=== PATIENT | female | born 2000 | race Caucasian/White ===

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

== ENCOUNTER 2021-05-12 07:43 | Inpatient (IN) ==
[2021-05-12] MEDS ORDERED: DINOPROSTONE 10 MG INSERT PV ONE ×2 (08:32→22:27)
[2021-05-12] MEDS ORDERED: OXYTOCIN 30 UNITS/500 ML BAG IV PRN (08:32)
--- NOTE | 2021-05-12 08:44 | Obstetrical Progress Note ---
Date of Service May 12, 2021 Assessment & Plan (1) Post-dates : Plan: Induction for post dates bedside sono; Vt presentation EFW by brendon; 9lbs VE; ft/50/-3 soft FHR CAT1 CTx; 6-8mins Cervidil will be placed Admission and Anticipated Discharge Date Admission Date: May 12, 2021 Results & Data ([facility]) Vital Signs (Past 12 Hours) Vital Signs Temp Pulse Resp BP 05/12/21 08:07 37.2 C 18 05/12/21 08:06 100 H 133/77
[2021-05-12 09:04] LABS: Hematocrit (blood only) 35.9 % (37-47); Hemoglobin 12.1 g/dL (12.0-16.0); Mean Corpuscular Hemoglobin 31.6 pg (25-34); Mean Corpuscular Hgb Conc 33.7 g/dL (32-36); Mean Corpuscular Volume 93.7 fL (80-100); Mean Platelet Volume 9.1 fL (7.4-10.4); Platelet Count 367 K/uL (130-400); RDW Coefficient of Variation 14.1 % (11.5-14.5); RDW Standard Deviation 48.4 fL (36.4-46.3); Red Blood Count 3.83 M/uL (4.2-5.4); White Blood Count 13.43 K/uL (4.8-10.8)
[2021-05-12] MEDS ORDERED: CALCIUM CARBONATE 500 MG CHEWABLE TAB PO PRN (09:20)
[2021-05-12] MEDS ORDERED: SODIUM CHLORIDE 0.9% 250 ML IV PRN (09:34)
[2021-05-12] MEDS ORDERED: ACETAMINOPHEN 325 MG TAB PO PRN (13:33)
[2021-05-12] MEDS: BUTORPHANOL TARTRATE 1 MG/ML VIAL IV PRN ×3 (13:46→22:40)
[2021-05-12] MEDS: ONDANSETRON INJ 2 MG/ML 2 ML VIAL IV PRN (13:47)
[2021-05-12] MEDS: LACTATED RINGER'S 1,000 ML IV PRN (13:49)
--- NOTE | 2021-05-12 22:26 | Labor Progress Brief Note ---
Date of Service May 12, 2021 Assessment & Plan (1) Post-dates : Plan: Induction for post dates Day#1 FHR CAT1 Ctx 2-3min VE; ft/post Cervidil Removed Plan Feed pt Will place 2nd Cervidil after dinner Admission and Anticipated Discharge Date Admission Date: May 12, 2021 Results & Data ([facility]) Vital Signs (Past 12 Hours) Vital Signs Temp Pulse Resp BP Pulse Ox 05/12/21 19:55 102 H 94 05/12/21 19:51 101 H 93 05/12/21 19:47 102 H 94 05/12/21 19:46 107 H 97 05/12/21 19:41 107 H 92 05/12/21 19:36 99 H 93 05/12/21 19:35 105 H 94 05/12/21 19:30 104 H 95 05/12/21 19:25 111 H 90 05/12/21 19:20 104 H 91 05/12/21 19:15 110 H 94 05/12/21 19:10 111 H 97 05/12/21 19:08 106 H 131/75 05/12/21 15:30 18 05/12/21 15:07 36.7 C 18 05/12/21 15:06 93 H 125/73 05/12/21 11:06 36.8 C 96 H 20 122/70
--- NOTE | 2021-05-13 00:17 | Labor Progress Brief Note ---
Date of Service May 13, 2021 Assessment & Plan (1) Post-dates : Plan: Induction for post dates FHR; CAT1 Ctx ; 2-6 mins VE; Unchanged Cervidil #2 placed in Vagina Admission and Anticipated Discharge Date Admission Date: May 12, 2021 Results & Data ([facility]) Vital Signs (Past 12 Hours) Vital Signs Temp Pulse Resp BP Pulse Ox 05/12/21 22:59 117 H 93 05/12/21 22:54 109 H 88 L 05/12/21 22:49 120 H 91 05/12/21 22:44 122 H 94 05/12/21 22:39 113 H 115/75 94 05/12/21 19:55 102 H 94 05/12/21 19:51 101 H 93 05/12/21 19:47 102 H 94 05/12/21 19:46 107 H 97 05/12/21 19:41 107 H 92 05/12/21 19:36 99 H 93 05/12/21 19:35 105 H 94 05/12/21 19:30 104 H 95 05/12/21 19:25 111 H 90 05/12/21 19:20 104 H 91 05/12/21 19:15 110 H 94 05/12/21 19:10 111 H 97 05/12/21 19:08 106 H 131/75 05/12/21 15:30 18 05/12/21 15:07 36.7 C 18 05/12/21 15:06 93 H 125/73
[2021-05-13] MEDS ORDERED: ZOLPIDEM TARTRATE 5 MG TAB PO PRN (00:56)
[2021-05-13] MEDS: BUTORPHANOL TARTRATE 1 MG/ML VIAL IV PRN (02:00)
[2021-05-13] MEDS ORDERED: ePHEDrine sulfate 50 MG/ML AMP ONE (03:09)
[2021-05-13] MEDS ORDERED: fentaNYL citrate 100 MCG/2 ML VIAL ONE ×2 (03:09→15:40)
[2021-05-13] MEDS ORDERED: BUPIVACAINE 0.25% 30 ML VIAL ONE ×2 (03:09→15:40)
[2021-05-13] MEDS ORDERED: SODIUM CHLORIDE 0.9% INJ 10 ML VIAL ONE ×2 (03:09→15:40)
[2021-05-13] MEDS ORDERED: fentaNYL 2MCG/ML ROPIVACAINE 1.25MG/ML 100 ML BAG EPI ONE ×2 (03:09→12:05)
[2021-05-13] MEDS ORDERED: ONDANSETRON INJ 2 MG/ML 2 ML VIAL IV PRN (03:13)
[2021-05-13] MEDS ORDERED: NALOXONE HCL 1 MG in SODIUM CHLORIDE 0.9% 1000ML 1,000 ML IV PRN (03:13)
[2021-05-13] MEDS ORDERED: NALBUPHINE HCL INJ 10 MG/ML AMP IV PRN (03:13)
[2021-05-13] MEDS ORDERED: diphenhydrAMINE 50 MG/ML VIAL IV PRN (03:13)
[2021-05-13] MEDS ORDERED: ePHEDrine sulfate 50 MG/ML AMP IV PRN (03:13)
[2021-05-13] MEDS ORDERED: NALOXONE HCL 0.4 MG/1 ML VIAL/CARP IV PRN (03:13)
--- NOTE | 2021-05-13 03:13 | Anesthesiology Consultation ---
Date of Service May 13, 2021 Assessment & Plan ASA ASA2 Proposed Anesthesia Anesthesia Type: Labor Epidural Risk / Benefits Reviewed With: PT / POA / Parent / Guardian, Accepts Plan and Informed Consent Obtained History Height/Weight Height: 5 ft Weight: 81.647 kg Allergies Allergy/AdvReac Type Severity Reaction Status Date / Time No Known Allergies Allergy Unknown Verified 05/12/21 08:12 Medications Home Medications Medication Instructions Recorded Confirmed Last Taken acetaminophen 325 mg capsule 650 mg PO QID PRN 02/02/21 05/12/21 05/12/21 07:00 iron,carbonyl 65 mg-vitamin C 125 1 tab PO BID 03/06/21 05/12/21 05/11/21 21:00 mg tablet,delayed release (Vitron-C) cyanocobalamin (vitamin B-12) 1,000 mcg PO DAILY 05/12/21 05/12/21 05/11/21 09:00 1,000 mcg tablet (Vitamin B-12) Active Medications Generic Name Dose Route Start Last Admin Trade Name Freq PRN Reason Stop Dose Admin Butorphanol Tartrate 1 mg 05/12/21 13:34 05/13/21 02:00 Butorphanol Tartrate 1 Mg/Ml Vial IV 06/11/21 13:33 1 mg Q2HWA PRN Administration Pain Calcium Carbonate 1,500 mg 05/12/21 09:20 05/12/21 09:44 Calcium Carbonate 500 Mg Chewable Tab PO 06/11/21 09:19 1,500 mg Q4 PRN Administration Indigestion Lactated Ringer's 1,000 mls @ 125 mls/hr 05/12/21 08:32 05/13/21 03:01 Lr IV 05/14/21 08:31 Infused .Q8H PRN Infusion L&D Protocol Protocol Ondansetron HCl 4 mg 05/12/21 13:32 05/12/21 13:47 Ondansetron Inj 2 Mg/Ml 2 Ml Vial IV 06/11/21 13:31 4 mg Q4H PRN Administration Nausea Zolpidem Tartrate 5 mg 05/13/21 00:56 05/13/21 01:18 Zolpidem Tartrate 5 Mg Tab PO 06/12/21 00:55 5 mg HS PRN Administration Sleep Past Medical History Medical History (Updated 05/12/21 @ 08:41 by Jeremy Peres MD) Anemia on Vitron C Asthma no meds at this time. Low serum vitamin B12 Exercise / Class Metabolic Activity II 4-5 Yardwork/Stairs/Walk up hill Past Surgical History Surgical History No significant past surgical history Past Anesthesia History No Hx of Anesthesia Complications and No Family Hx of Anesthesia Complications History of PONV No Hx of PONV and No Hx of Motion Sickness Social History Smoking Status: Never smoker Hx Alcohol Use: No Hx Substance Use: No substance use type: does not use Review of Systems denies fever/cough/ colds/ chest pain/ SOB/ TRICE denies TRICE Physical Exam Vital Signs Last Vital Signs Temp 36.9 C 05/13/21 01:45 Pulse 127 H 05/13/21 03:44 Resp 18 05/12/21 15:30 BP 124/68 05/13/21 03:44 Pulse Ox 98 05/13/21 03:41 ENMT Mouth: no TMJ abnormality and no dentition abnormality Thyromental Distance: > or= 3.5 Finger Breadths Mallampati Class: II Neck neck extension not limited Respiratory normal respiratory effort; no respiratory distress Auscultation: lungs clear to auscultation bilaterally Cardiovascular Rate/Rhythm: regular rate and regular rhythm Neurologic moves all extremities Psychiatric Orientation: alert and oriented x 3 Testing Laboratory Results 05/12/21 08:55 Blood Type B Positive 05/12/21 08:55 Antibody Screen NEGATIVE 05/12/21 08:55
[2021-05-13] MEDS: fentaNYL 2MCG/ML ROPIVACAINE 1.25MG/ML 100 ML BAG EPI PRN ×4 (04:39→16:42)
[2021-05-13] MEDS ORDERED: LIDOCAINE 2% MPF LOCAL 5 ML VIAL INFIL ONE ×2 (05:13)
[2021-05-13] MEDS: LACTATED RINGER'S 1,000 ML IV PRN ×3 (05:18→12:11)
--- NOTE | 2021-05-13 05:31 | Communication Note ---
Date of Service: May 13, 2021 pt c/o 03/26 pain. bolused 5cc of 2% licocaine and pulled epidural back 1 cm. pt reports improvement in pain
--- NOTE | 2021-05-13 05:54 | Labor Progress Brief Note ---
Date of Service May 13, 2021 Assessment & Plan (1) Post-dates : Plan: Induction for post dates Pt doing well SROM @ 03;[address] 2nd cervidil removed after SROM FHR ; CAT2 VE 6-7/75/-1 ctx 2-3 mins scalp electrode placed Admission and Anticipated Discharge Date Admission Date: May 12, 2021 Results & Data ([facility]) Vital Signs (Past 12 Hours) Vital Signs Temp Pulse Resp BP Pulse Ox 05/13/21 05:47 110 H 111/61 05/13/21 05:46 109 H 91 05/13/21 05:41 110 H 91 05/13/21 05:36 111 H 92 05/13/21 05:32 113 H 112/58 L 05/13/21 05:31 113 H 91 05/13/21 05:30 20 05/13/21 05:26 119 H 89 L 05/13/21 05:21 127 H 124/59 L 93 05/13/21 05:20 37.2 C 05/13/21 05:17 133 H 123/68 05/13/21 05:16 128 H 90 05/13/21 05:15 134 H 94 05/13/21 05:11 137 H 97 05/13/21 05:10 134 H 93 05/13/21 05:06 131 H 93 05/13/21 05:02 148 H 154/88 H 05/13/21 05:01 149 H 95 05/13/21 04:56 132 H 96 05/13/21 04:55 135 H 93 05/13/21 04:51 134 H 97 05/13/21 04:48 140 H 145/78 H 94 05/13/21 04:46 149 H 91 05/13/21 04:41 131 H 91 05/13/21 04:36 131 H 94 05/13/21 04:35 141 H 94 05/13/21 04:31 37.1 C 136 H 94 05/13/21 04:30 136 H 24 145/79 H 92 05/13/21 04:26 133 H 93 05/13/21 04:25 134 H 133/81 05/13/21 04:21 135 H 93 05/13/21 04:20 131 H 137/62 05/13/21 04:16 134 H 97 05/13/21 04:14 134 H 137/76 05/13/21 04:11 141 H 96 05/13/21 04:10 130 H 140/65 05/13/21 04:09 130 H 93 05/13/21 04:06 129 H 97 05/13/21 04:05 125 H 136/58 L 05/13/21 04:04 130 H 94 05/13/21 04:01 132 H 136/72 94 05/13/21 04:00 22 05/13/21 03:58 131 H 93 05/13/21 03:56 132 H 96 05/13/21 03:54 129 H 138/77 05/13/21 03:52 126 H 94 05/13/21 03:51 127 H 95 05/13/21 03:50 129 H 133/67 05/13/21 03:46 128 H 93 05/13/21 03:44 127 H 124/68 05/13/21 03:41 137 H 98 05/13/21 03:38 136 H 122/62 93 05/13/21 03:36 142 H 120/65 97 05/13/21 03:34 134 H 120/62 05/13/21 03:32 137 H 121/68 05/13/21 03:31 135 H 97 05/13/21 03:30 137 H 111/64 05/13/21 01:45 36.9 C 05/12/21 22:59 117 H 93 05/12/21 22:54 109 H 88 L 05/12/21 22:49 120 H 91 05/12/21 22:44 122 H 94 05/12/21 22:39 113 H 115/75 94 05/12/21 19:55 102 H 94 05/12/21 19:51 101 H 93 05/12/21 19:47 102 H 94 05/12/21 19:46 107 H 97 05/12/21 19:41 107 H 92 05/12/21 19:36 99 H 93 05/12/21 19:35 105 H 94 05/12/21 19:30 104 H 95 05/12/21 19:25 111 H 90 05/12/21 19:20 104 H 91 05/12/21 19:15 110 H 94 05/12/21 19:10 111 H 97 05/12/21 19:08 106 H 131/75
[2021-05-13] MEDS ORDERED: OXYTOCIN 30 UNITS/500 ML BAG IV PRN ×2 (08:39→18:51)
--- NOTE | 2021-05-13 08:39 | Obstetrical Progress Note ---
Date of Service May 13, 2021 Assessment & Plan Admission and Anticipated Discharge Date Admission Date: May 12, 2021 Subjective Patient is seen and examined Admitted yesterday for postdates, received 2 Cervidil SROM at 03 am Cervix was 6-7 cm at [address] Peres She denies medical problems, smoking/ alcohol or D use Denies h/o STD's including HSV FHR with baseline of 150-160's, with accelerations, no decels, between minimal to moderate variability [place] irregular ctxs q 2-5 min VE; 6-7 cm/ 70%/ 0, anterior fontanelle at 10 'clock position, FHR had acceleration with VE Feels feverish and chills, feels warm to touch despite normal oral temp Plan to start IV AB and low dose pitocin Continue to monitor closely Results & Data ([facility]) Vital Signs (Past 12 Hours) Vital Signs Temp Pulse Resp BP Pulse Ox 05/13/21 08:32 127 H 119/58 L 05/13/21 08:31 129 H 95 05/13/21 08:26 123 H 95 05/13/21 08:21 127 H 95 05/13/21 08:16 131 H 116/65 93 05/13/21 08:15 37.3 C 05/13/21 08:11 124 H 93 05/13/21 08:06 123 H 89 L 05/13/21 08:03 121 H 88 L 05/13/21 08:01 125 H 107/59 L 91 05/13/21 07:56 134 H 91 05/13/21 07:51 121 H 91 05/13/21 07:47 114 H 89 L 05/13/21 07:46 116 H 105/58 L 90 05/13/21 07:41 114 H 88 L 05/13/21 07:38 115 H 88 L 05/13/21 07:36 111 H 88 L 05/13/21 07:31 112 H 98/57 L 89 L 05/13/21 07:26 115 H 88 L 05/13/21 07:21 124 H 90 05/13/21 07:16 127 H 114/71 90 05/13/21 07:11 123 H 91 05/13/21 07:06 127 H 88 L 05/13/21 07:01 139 H 106/56 L 91 05/13/21 07:00 37.3 C 132 H 18 87 L 05/13/21 06:56 136 H 92 05/13/21 06:55 135 H 94 05/13/21 06:51 131 H 92 05/13/21 06:46 126 H 108/56 L 91 05/13/21 06:41 120 H 88 L 05/13/21 06:36 125 H 91 05/13/21 06:33 137 H 101/58 L 05/13/21 06:31 137 H 95 05/13/21 06:30 127 H 16 93 05/13/21 06:28 126 H 118/53 L 05/13/21 06:26 131 H 93 05/13/21 06:25 132 H 94 05/13/21 06:21 133 H 93 05/13/21 06:19 126 H 94 05/13/21 06:16 128 H 93 05/13/21 06:11 109 H 90 05/13/21 06:06 108 H 90 05/13/21 06:01 110 H 102/54 L 91 05/13/21 05:56 112 H 92 05/13/21 05:53 129 H 94 05/13/21 05:51 126 H 97 05/13/21 05:47 110 H 111/61 05/13/21 05:46 109 H 91 05/13/21 05:41 110 H 91 05/13/21 05:36 111 H 92 05/13/21 05:32 113 H 112/58 L 05/13/21 05:31 113 H 91 05/13/21 05:30 20 05/13/21 05:26 119 H 89 L 05/13/21 05:21 127 H 124/59 L 93 05/13/21 05:20 37.2 C 05/13/21 05:17 133 H 123/68 05/13/21 05:16 128 H 90 05/13/21 05:15 134 H 94 05/13/21 05:11 137 H 97 05/13/21 05:10 134 H 93 05/13/21 05:06 131 H 93 05/13/21 05:02 148 H 154/88 H 05/13/21 05:01 149 H 95 05/13/21 04:56 132 H 96 05/13/21 04:55 135 H 93 05/13/21 04:51 134 H 97 05/13/21 04:48 140 H 145/78 H 94 05/13/21 04:46 149 H 91 05/13/21 04:41 131 H 91 05/13/21 04:36 131 H 94 05/13/21 04:35 141 H 94 05/13/21 04:31 37.1 C 136 H 94 05/13/21 04:30 136 H 24 145/79 H 92 05/13/21 04:26 133 H 93 05/13/21 04:25 134 H 133/81 05/13/21 04:21 135 H 93 05/13/21 04:20 131 H 137/62 05/13/21 04:16 134 H 97 05/13/21 04:14 134 H 137/76 05/13/21 04:11 141 H 96 05/13/21 04:10 130 H 140/65 05/13/21 04:09 130 H 93 05/13/21 04:06 129 H 97 05/13/21 04:05 125 H 136/58 L 05/13/21 04:04 130 H 94 05/13/21 04:01 132 H 136/72 94 05/13/21 04:00 22 05/13/21 03:58 131 H 93 05/13/21 03:56 132 H 96 05/13/21 03:54 129 H 138/77 05/13/21 03:52 126 H 94 05/13/21 03:51 127 H 95 05/13/21 03:50 129 H 133/67 05/13/21 03:46 128 H 93 05/13/21 03:44 127 H 124/68 05/13/21 03:41 137 H 98 05/13/21 03:38 136 H 122/62 93 05/13/21 03:36 142 H 120/65 97 05/13/21 03:34 134 H 120/62 05/13/21 03:32 137 H 121/68 05/13/21 03:31 135 H 97 05/13/21 03:30 137 H 111/64 05/13/21 01:45 36.9 C 05/12/21 22:59 117 H 93 05/12/21 22:54 109 H 88 L 05/12/21 22:49 120 H 91 05/12/21 22:44 122 H 94 05/12/21 22:39 113 H 115/75 94
[2021-05-13] MEDS: ceFAZolin 2000MG 2,000 MG/15 ML SYR IV SCH ×3 (09:25→19:25)
[2021-05-13] MEDS: CLINDAMYCIN 900 MG in DEXTROSE 5% 50 ML IV SCH ×3 (09:29→19:25)
--- NOTE | 2021-05-13 12:39 | Obstetrical Progress Note ---
Date of Service May 13, 2021 Assessment & Plan Admission and Anticipated Discharge Date Admission Date: May 12, 2021 Subjective Patient is reevaluated She feels pressure VE: 10/100%/+2 FHR 160's, minimal to moderate variability and accelerations+, no decel [place]: ctxs q 2-3 min Plan to monitor and start pushing Results & Data ([facility]) Vital Signs (Past 12 Hours) Vital Signs Temp Pulse Resp BP Pulse Ox 05/13/21 12:36 131 H 93 05/13/21 12:32 136 H 127/61 05/13/21 12:31 137 H 95 05/13/21 12:30 20 05/13/21 12:26 126 H 94 05/13/21 12:21 123 H 91 05/13/21 12:16 124 H 118/58 L 93 05/13/21 12:11 130 H 91 05/13/21 12:06 128 H 92 05/13/21 12:01 126 H 111/65 92 05/13/21 11:56 127 H 94 05/13/21 11:51 126 H 91 05/13/21 11:47 126 H 121/59 L 05/13/21 11:46 128 H 91 05/13/21 11:41 124 H 92 05/13/21 11:36 116 H 91 05/13/21 11:31 116 H 116/57 L 89 L 05/13/21 11:26 111 H 89 L 05/13/21 11:21 118 H 92 05/13/21 11:17 123 H 121/66 05/13/21 11:16 120 H 91 05/13/21 11:11 110 H 91 05/13/21 11:06 115 H 93 05/13/21 11:01 117 H 118/63 92 05/13/21 10:56 124 H 91 05/13/21 10:51 129 H 94 05/13/21 10:46 123 H 97/51 L 90 05/13/21 10:41 121 H 90 05/13/21 10:36 126 H 92 05/13/21 10:32 126 H 126/56 L 05/13/21 10:31 125 H 93 05/13/21 10:30 18 05/13/21 10:26 125 H 94 05/13/21 10:21 127 H 94 05/13/21 10:17 125 H 104/52 L 05/13/21 10:16 126 H 95 05/13/21 10:11 128 H 95 05/13/21 10:06 130 H 94 05/13/21 10:01 127 H 93 05/13/21 09:56 134 H 93 05/13/21 09:51 127 H 94 05/13/21 09:46 127 H 95/50 L 92 05/13/21 09:41 133 H 93 05/13/21 09:36 118 H 89 L 05/13/21 09:31 114 H 90/52 L 89 L 05/13/21 09:30 18 05/13/21 09:26 114 H 89 L 05/13/21 09:21 114 H 89 L 05/13/21 09:17 110 H 94/51 L 05/13/21 09:16 114 H 89 L 05/13/21 09:13 118 H 89 L 05/13/21 09:11 114 H 89 L 05/13/21 09:06 117 H 89 L 05/13/21 09:02 121 H 89 L 05/13/21 09:01 120 H 104/52 L 91 05/13/21 09:00 20 05/13/21 08:56 123 H 93 05/13/21 08:51 119 H 93 05/13/21 08:48 118 H 99/55 L 05/13/21 08:46 125 H 94 05/13/21 08:41 126 H 94 05/13/21 08:36 125 H 96 05/13/21 08:32 127 H 119/58 L 05/13/21 08:31 129 H 95 05/13/21 08:26 123 H 95 05/13/21 08:21 127 H 95 05/13/21 08:16 131 H 116/65 93 05/13/21 08:15 37.3 C 05/13/21 08:11 124 H 93 05/13/21 08:06 123 H 89 L 05/13/21 08:03 121 H 88 L 05/13/21 08:01 125 H 107/59 L 91 05/13/21 07:56 134 H 91 05/13/21 07:51 121 H 91 05/13/21 07:47 114 H 89 L 05/13/21 07:46 116 H 105/58 L 90 05/13/21 07:41 114 H 88 L 05/13/21 07:38 115 H 88 L 05/13/21 07:36 111 H 88 L 05/13/21 07:31 112 H 98/57 L 89 L 05/13/21 07:26 115 H 88 L 05/13/21 07:21 124 H 90 05/13/21 07:16 127 H 114/71 90 05/13/21 07:11 123 H 91 05/13/21 07:06 127 H 88 L 05/13/21 07:01 139 H 106/56 L 91 05/13/21 07:00 37.3 C 132 H 18 87 L 05/13/21 06:56 136 H 92 05/13/21 06:55 135 H 94 05/13/21 06:51 131 H 92 05/13/21 06:46 126 H 108/56 L 91 05/13/21 06:41 120 H 88 L 05/13/21 06:36 125 H 91 05/13/21 06:33 137 H 101/58 L 05/13/21 06:31 137 H 95 05/13/21 06:30 127 H 16 93 05/13/21 06:28 126 H 118/53 L 05/13/21 06:26 131 H 93 05/13/21 06:25 132 H 94 05/13/21 06:21 133 H 93 05/13/21 06:19 126 H 94 05/13/21 06:16 128 H 93 05/13/21 06:11 109 H 90 05/13/21 06:06 108 H 90 05/13/21 06:01 110 H 102/54 L 91 05/13/21 05:56 112 H 92 05/13/21 05:53 129 H 94 05/13/21 05:51 126 H 97 05/13/21 05:47 110 H 111/61 05/13/21 05:46 109 H 91 05/13/21 05:41 110 H 91 05/13/21 05:36 111 H 92 05/13/21 05:32 113 H 112/58 L 05/13/21 05:31 113 H 91 05/13/21 05:30 20 05/13/21 05:26 119 H 89 L 05/13/21 05:21 127 H 124/59 L 93 05/13/21 05:20 37.2 C 05/13/21 05:17 133 H 123/68 05/13/21 05:16 128 H 90 05/13/21 05:15 134 H 94 05/13/21 05:11 137 H 97 05/13/21 05:10 134 H 93 05/13/21 05:06 131 H 93 05/13/21 05:02 148 H 154/88 H 05/13/21 05:01 149 H 95 05/13/21 04:56 132 H 96 05/13/21 04:55 135 H 93 05/13/21 04:51 134 H 97 05/13/21 04:48 140 H 145/78 H 94 05/13/21 04:46 149 H 91 05/13/21 04:41 131 H 91 05/13/21 04:36 131 H 94 05/13/21 04:35 141 H 94 05/13/21 04:31 37.1 C 136 H 94 05/13/21 04:30 136 H 24 145/79 H 92 05/13/21 04:26 133 H 93 05/13/21 04:25 134 H 133/81 05/13/21 04:21 135 H 93 05/13/21 04:20 131 H 137/62 05/13/21 04:16 134 H 97 05/13/21 04:14 134 H 137/76 05/13/21 04:11 141 H 96 05/13/21 04:10 130 H 140/65 05/13/21 04:09 130 H 93 05/13/21 04:06 129 H 97 05/13/21 04:05 125 H 136/58 L 05/13/21 04:04 130 H 94 05/13/21 04:01 132 H 136/72 94 05/13/21 04:00 22 05/13/21 03:58 131 H 93 05/13/21 03:56 132 H 96 05/13/21 03:54 129 H 138/77 05/13/21 03:52 126 H 94 05/13/21 03:51 127 H 95 05/13/21 03:50 129 H 133/67 05/13/21 03:46 128 H 93 05/13/21 03:44 127 H 124/68 05/13/21 03:41 137 H 98 05/13/21 03:38 136 H 122/62 93 05/13/21 03:36 142 H 120/65 97 05/13/21 03:34 134 H 120/62 05/13/21 03:32 137 H 121/68 05/13/21 03:31 135 H 97 05/13/21 03:30 137 H 111/64 05/13/21 01:45 36.9 C
--- NOTE | 2021-05-13 14:00 | Obstetrical Progress Note ---
Date of Service May 13, 2021 Assessment & Plan Admission and Anticipated Discharge Date Admission Date: May 12, 2021 Subjective Patient has been pushing since 1:30 pm FHR 150-160's with good variability and accels, no decels VE: head at +3 station, caput visible at introitus Continue to monitor and pushing Results & Data ([facility]) Vital Signs (Past 12 Hours) Vital Signs Temp Pulse Resp BP Pulse Ox 05/13/21 13:56 122 H 99 05/13/21 13:51 115 H 94 05/13/21 13:46 121 H 120/58 L 94 05/13/21 13:41 122 H 95 05/13/21 13:36 130 H 94 05/13/21 13:31 131 H 96 05/13/21 13:30 37.7 C H 18 05/13/21 13:26 129 H 94 05/13/21 13:21 132 H 94 05/13/21 13:16 129 H 139/77 94 05/13/21 13:11 124 H 93 05/13/21 13:06 131 H 93 05/13/21 13:02 130 H 131/62 05/13/21 13:01 128 H 93 05/13/21 12:56 129 H 94 05/13/21 12:51 126 H 94 05/13/21 12:46 132 H 136/69 94 05/13/21 12:41 122 H 93 05/13/21 12:36 131 H 93 05/13/21 12:32 136 H 127/61 05/13/21 12:31 137 H 95 05/13/21 12:30 20 05/13/21 12:26 126 H 94 05/13/21 12:21 123 H 91 05/13/21 12:16 124 H 118/58 L 93 05/13/21 12:11 130 H 91 05/13/21 12:06 128 H 92 05/13/21 12:01 126 H 111/65 92 05/13/21 11:56 127 H 94 05/13/21 11:51 126 H 91 05/13/21 11:47 126 H 121/59 L 05/13/21 11:46 128 H 91 05/13/21 11:41 124 H 92 05/13/21 11:36 116 H 91 05/13/21 11:31 116 H 116/57 L 89 L 05/13/21 11:26 111 H 89 L 05/13/21 11:21 118 H 92 05/13/21 11:17 123 H 121/66 05/13/21 11:16 120 H 91 05/13/21 11:11 110 H 91 05/13/21 11:06 115 H 93 05/13/21 11:01 117 H 118/63 92 05/13/21 10:56 124 H 91 05/13/21 10:51 129 H 94 05/13/21 10:46 123 H 97/51 L 90 05/13/21 10:41 121 H 90 05/13/21 10:36 126 H 92 05/13/21 10:32 126 H 126/56 L 05/13/21 10:31 125 H 93 05/13/21 10:30 18 05/13/21 10:26 125 H 94 05/13/21 10:21 127 H 94 05/13/21 10:17 125 H 104/52 L 05/13/21 10:16 126 H 95 05/13/21 10:11 128 H 95 05/13/21 10:06 130 H 94 05/13/21 10:01 127 H 93 05/13/21 09:56 134 H 93 05/13/21 09:51 127 H 94 05/13/21 09:46 127 H 95/50 L 92 05/13/21 09:41 133 H 93 05/13/21 09:36 118 H 89 L 05/13/21 09:31 114 H 90/52 L 89 L 05/13/21 09:30 18 05/13/21 09:26 114 H 89 L 05/13/21 09:21 114 H 89 L 05/13/21 09:17 110 H 94/51 L 05/13/21 09:16 114 H 89 L 05/13/21 09:13 118 H 89 L 05/13/21 09:11 114 H 89 L 05/13/21 09:06 117 H 89 L 05/13/21 09:02 121 H 89 L 05/13/21 09:01 120 H 104/52 L 91 05/13/21 09:00 20 05/13/21 08:56 123 H 93 05/13/21 08:51 119 H 93 05/13/21 08:48 118 H 99/55 L 05/13/21 08:46 125 H 94 05/13/21 08:41 126 H 94 05/13/21 08:36 125 H 96 05/13/21 08:32 127 H 119/58 L 05/13/21 08:31 129 H 95 05/13/21 08:26 123 H 95 05/13/21 08:21 127 H 95 05/13/21 08:16 131 H 116/65 93 05/13/21 08:15 37.3 C 05/13/21 08:11 124 H 93 05/13/21 08:06 123 H 89 L 05/13/21 08:03 121 H 88 L 05/13/21 08:01 125 H 107/59 L 91 05/13/21 07:56 134 H 91 05/13/21 07:51 121 H 91 05/13/21 07:47 114 H 89 L 05/13/21 07:46 116 H 105/58 L 90 05/13/21 07:41 114 H 88 L 05/13/21 07:38 115 H 88 L 05/13/21 07:36 111 H 88 L 05/13/21 07:31 112 H 98/57 L 89 L 05/13/21 07:26 115 H 88 L 05/13/21 07:21 124 H 90 05/13/21 07:16 127 H 114/71 90 05/13/21 07:11 123 H 91 05/13/21 07:06 127 H 88 L 05/13/21 07:01 139 H 106/56 L 91 05/13/21 07:00 37.3 C 132 H 18 87 L 05/13/21 06:56 136 H 92 05/13/21 06:55 135 H 94 05/13/21 06:51 131 H 92 05/13/21 06:46 126 H 108/56 L 91 05/13/21 06:41 120 H 88 L 05/13/21 06:36 125 H 91 05/13/21 06:33 137 H 101/58 L 05/13/21 06:31 137 H 95 05/13/21 06:30 127 H 16 93 05/13/21 06:28 126 H 118/53 L 05/13/21 06:26 131 H 93 05/13/21 06:25 132 H 94 05/13/21 06:21 133 H 93 05/13/21 06:19 126 H 94 05/13/21 06:16 128 H 93 05/13/21 06:11 109 H 90 05/13/21 06:06 108 H 90 05/13/21 06:01 110 H 102/54 L 91 05/13/21 05:56 112 H 92 05/13/21 05:53 129 H 94 05/13/21 05:51 126 H 97 05/13/21 05:47 110 H 111/61 05/13/21 05:46 109 H 91 05/13/21 05:41 110 H 91 05/13/21 05:36 111 H 92 05/13/21 05:32 113 H 112/58 L 05/13/21 05:31 113 H 91 05/13/21 05:30 20 05/13/21 05:26 119 H 89 L 05/13/21 05:21 127 H 124/59 L 93 05/13/21 05:20 37.2 C 05/13/21 05:17 133 H 123/68 05/13/21 05:16 128 H 90 05/13/21 05:15 134 H 94 05/13/21 05:11 137 H 97 05/13/21 05:10 134 H 93 05/13/21 05:06 131 H 93 05/13/21 05:02 148 H 154/88 H 05/13/21 05:01 149 H 95 05/13/21 04:56 132 H 96 05/13/21 04:55 135 H 93 05/13/21 04:51 134 H 97 05/13/21 04:48 140 H 145/78 H 94 05/13/21 04:46 149 H 91 05/13/21 04:41 131 H 91 05/13/21 04:36 131 H 94 05/13/21 04:35 141 H 94 05/13/21 04:31 37.1 C 136 H 94 05/13/21 04:30 136 H 24 145/79 H 92 05/13/21 04:26 133 H 93 05/13/21 04:25 134 H 133/81 05/13/21 04:21 135 H 93 05/13/21 04:20 131 H 137/62 05/13/21 04:16 134 H 97 05/13/21 04:14 134 H 137/76 05/13/21 04:11 141 H 96 05/13/21 04:10 130 H 140/65 05/13/21 04:09 130 H 93 05/13/21 04:06 129 H 97 05/13/21 04:05 125 H 136/58 L 05/13/21 04:04 130 H 94 05/13/21 04:01 132 H 136/72 94 05/13/21 04:00 22 05/13/21 03:58 131 H 93 05/13/21 03:56 132 H 96 05/13/21 03:54 129 H 138/77 05/13/21 03:52 126 H 94 05/13/21 03:51 127 H 95 05/13/21 03:50 129 H 133/67 05/13/21 03:46 128 H 93 05/13/21 03:44 127 H 124/68 05/13/21 03:41 137 H 98 05/13/21 03:38 136 H 122/62 93 05/13/21 03:36 142 H 120/65 97 05/13/21 03:34 134 H 120/62 05/13/21 03:32 137 H 121/68 05/13/21 03:31 135 H 97 05/13/21 03:30 137 H 111/64
[2021-05-13] MEDS: ONDANSETRON INJ 2 MG/ML 2 ML VIAL IV PRN (15:04)
--- NOTE | 2021-05-13 15:25 | Obstetrical Progress Note ---
Date of Service May 13, 2021 Assessment & Plan Admission and Anticipated Discharge Date Admission Date: May 12, 2021 Subjective Patient is tired and in pain, refuses to push, desires Csection FHR reassuring, head at +3, more caput visible with pushes Discussed the risks of Csection as major surgery and increased risk of bleeding, infection, injury to surrounding organs, DVT, PE and longer recovery Discussed risks of vacuum extraction Offered her pain relief by epidural bolus and she accepted Called Dr Freeman for pain management and he will be coming Continue to monitor closely Results & Data ([facility]) Vital Signs (Past 12 Hours) Vital Signs Temp Pulse Resp BP Pulse Ox 05/13/21 15:16 131 H 95 05/13/21 15:11 143 H 95 05/13/21 15:06 123 H 96 05/13/21 15:01 127 H 134/73 95 05/13/21 14:56 132 H 98 05/13/21 14:51 123 H 98 05/13/21 14:46 121 H 99 05/13/21 14:41 121 H 98 05/13/21 14:36 118 H 98 05/13/21 14:32 116 H 113/57 L 05/13/21 14:31 124 H 99 05/13/21 14:30 22 05/13/21 14:26 114 H 98 05/13/21 14:21 120 H 98 05/13/21 14:16 119 H 113/56 L 98 05/13/21 14:15 22 05/13/21 14:11 115 H 98 05/13/21 14:06 122 H 97 05/13/21 14:01 115 H 100/54 L 98 05/13/21 13:56 122 H 99 05/13/21 13:51 115 H 94 05/13/21 13:46 121 H 120/58 L 94 05/13/21 13:41 122 H 95 05/13/21 13:36 130 H 94 05/13/21 13:31 131 H 96 05/13/21 13:30 37.7 C H 18 05/13/21 13:26 129 H 94 05/13/21 13:21 132 H 94 05/13/21 13:16 129 H 139/77 94 05/13/21 13:11 124 H 93 05/13/21 13:06 131 H 93 05/13/21 13:02 130 H 131/62 05/13/21 13:01 128 H 93 05/13/21 12:56 129 H 94 05/13/21 12:51 126 H 94 05/13/21 12:46 132 H 136/69 94 05/13/21 12:41 122 H 93 05/13/21 12:36 131 H 93 05/13/21 12:32 136 H 127/61 05/13/21 12:31 137 H 95 05/13/21 12:30 20 05/13/21 12:26 126 H 94 05/13/21 12:21 123 H 91 05/13/21 12:16 124 H 118/58 L 93 05/13/21 12:11 130 H 91 05/13/21 12:06 128 H 92 05/13/21 12:01 126 H 111/65 92 05/13/21 11:56 127 H 94 05/13/21 11:51 126 H 91 05/13/21 11:47 126 H 121/59 L 05/13/21 11:46 128 H 91 05/13/21 11:41 124 H 92 05/13/21 11:36 116 H 91 05/13/21 11:31 116 H 116/57 L 89 L 05/13/21 11:26 111 H 89 L 05/13/21 11:21 118 H 92 05/13/21 11:17 123 H 121/66 05/13/21 11:16 120 H 91 05/13/21 11:11 110 H 91 05/13/21 11:06 115 H 93 05/13/21 11:01 117 H 118/63 92 05/13/21 10:56 124 H 91 05/13/21 10:51 129 H 94 05/13/21 10:46 123 H 97/51 L 90 05/13/21 10:41 121 H 90 05/13/21 10:36 126 H 92 05/13/21 10:32 126 H 126/56 L 05/13/21 10:31 125 H 93 05/13/21 10:30 18 05/13/21 10:26 125 H 94 05/13/21 10:21 127 H 94 05/13/21 10:17 125 H 104/52 L 05/13/21 10:16 126 H 95 05/13/21 10:11 128 H 95 05/13/21 10:06 130 H 94 05/13/21 10:01 127 H 93 05/13/21 09:56 134 H 93 05/13/21 09:51 127 H 94 05/13/21 09:46 127 H 95/50 L 92 05/13/21 09:41 133 H 93 05/13/21 09:36 118 H 89 L 05/13/21 09:31 114 H 90/52 L 89 L 05/13/21 09:30 18 05/13/21 09:26 114 H 89 L 05/13/21 09:21 114 H 89 L 05/13/21 09:17 110 H 94/51 L 05/13/21 09:16 114 H 89 L 05/13/21 09:13 118 H 89 L 05/13/21 09:11 114 H 89 L 05/13/21 09:06 117 H 89 L 05/13/21 09:02 121 H 89 L 05/13/21 09:01 120 H 104/52 L 91 05/13/21 09:00 20 05/13/21 08:56 123 H 93 05/13/21 08:51 119 H 93 05/13/21 08:48 118 H 99/55 L 05/13/21 08:46 125 H 94 05/13/21 08:41 126 H 94 05/13/21 08:36 125 H 96 05/13/21 08:32 127 H 119/58 L 05/13/21 08:31 129 H 95 05/13/21 08:26 123 H 95 05/13/21 08:21 127 H 95 05/13/21 08:16 131 H 116/65 93 05/13/21 08:15 37.3 C 05/13/21 08:11 124 H 93 05/13/21 08:06 123 H 89 L 05/13/21 08:03 121 H 88 L 05/13/21 08:01 125 H 107/59 L 91 05/13/21 07:56 134 H 91 05/13/21 07:51 121 H 91 05/13/21 07:47 114 H 89 L 05/13/21 07:46 116 H 105/58 L 90 05/13/21 07:41 114 H 88 L 05/13/21 07:38 115 H 88 L 05/13/21 07:36 111 H 88 L 05/13/21 07:31 112 H 98/57 L 89 L 05/13/21 07:26 115 H 88 L 05/13/21 07:21 124 H 90 05/13/21 07:16 127 H 114/71 90 05/13/21 07:11 123 H 91 05/13/21 07:06 127 H 88 L 05/13/21 07:01 139 H 106/56 L 91 05/13/21 07:00 37.3 C 132 H 18 87 L 05/13/21 06:56 136 H 92 05/13/21 06:55 135 H 94 05/13/21 06:51 131 H 92 05/13/21 06:46 126 H 108/56 L 91 05/13/21 06:41 120 H 88 L 05/13/21 06:36 125 H 91 05/13/21 06:33 137 H 101/58 L 05/13/21 06:31 137 H 95 05/13/21 06:30 127 H 16 93 05/13/21 06:28 126 H 118/53 L 05/13/21 06:26 131 H 93 05/13/21 06:25 132 H 94 05/13/21 06:21 133 H 93 05/13/21 06:19 126 H 94 05/13/21 06:16 128 H 93 05/13/21 06:11 109 H 90 05/13/21 06:06 108 H 90 05/13/21 06:01 110 H 102/54 L 91 05/13/21 05:56 112 H 92 05/13/21 05:53 129 H 94 05/13/21 05:51 126 H 97 05/13/21 05:47 110 H 111/61 05/13/21 05:46 109 H 91 05/13/21 05:41 110 H 91 05/13/21 05:36 111 H 92 05/13/21 05:32 113 H 112/58 L 05/13/21 05:31 113 H 91 05/13/21 05:30 20 05/13/21 05:26 119 H 89 L 05/13/21 05:21 127 H 124/59 L 93 05/13/21 05:20 37.2 C 05/13/21 05:17 133 H 123/68 05/13/21 05:16 128 H 90 05/13/21 05:15 134 H 94 05/13/21 05:11 137 H 97 05/13/21 05:10 134 H 93 05/13/21 05:06 131 H 93 05/13/21 05:02 148 H 154/88 H 05/13/21 05:01 149 H 95 05/13/21 04:56 132 H 96 05/13/21 04:55 135 H 93 05/13/21 04:51 134 H 97 05/13/21 04:48 140 H 145/78 H 94 05/13/21 04:46 149 H 91 05/13/21 04:41 131 H 91 05/13/21 04:36 131 H 94 05/13/21 04:35 141 H 94 05/13/21 04:31 37.1 C 136 H 94 05/13/21 04:30 136 H 24 145/79 H 92 05/13/21 04:26 133 H 93 05/13/21 04:25 134 H 133/81 05/13/21 04:21 135 H 93 05/13/21 04:20 131 H 137/62 05/13/21 04:16 134 H 97 05/13/21 04:14 134 H 137/76 05/13/21 04:11 141 H 96 05/13/21 04:10 130 H 140/65 05/13/21 04:09 130 H 93 05/13/21 04:06 129 H 97 05/13/21 04:05 125 H 136/58 L 05/13/21 04:04 130 H 94 05/13/21 04:01 132 H 136/72 94 05/13/21 04:00 22 05/13/21 03:58 131 H 93 05/13/21 03:56 132 H 96 05/13/21 03:54 129 H 138/77 05/13/21 03:52 126 H 94 05/13/21 03:51 127 H 95 05/13/21 03:50 129 H 133/67 05/13/21 03:46 128 H 93 05/13/21 03:44 127 H 124/68 05/13/21 03:41 137 H 98 05/13/21 03:38 136 H 122/62 93 05/13/21 03:36 142 H 120/65 97 05/13/21 03:34 134 H 120/62 05/13/21 03:32 137 H 121/68 05/13/21 03:31 135 H 97 05/13/21 03:30 137 H 111/64
--- NOTE | 2021-05-13 16:02 | Communication Note ---
Date of Service: May 13, 2021 Patient states having increasing labor pains. The epidural was bolused with fentanyl 75 mcg and 8mL of 0.125% bupivacaine. The patient stated having imp roved labor pains.
--- NOTE | 2021-05-13 18:07 | Obstetrical Progress Note ---
Date of Service May 13, 2021 Assessment & Plan Admission and Anticipated Discharge Date Admission Date: May 12, 2021 Subjective Patient received epidural bolus and wanted to sleep for about an hour Started pushing again at 5 pm Does not c/o pain anymore. VE; caput is visible, more than before about 7x5 cm with pushing Bed side US: unable to see head cwell nor eyes, back/ spine is anterior to the uterus, OA FHR 140's [place] posterior FHR reassuring Patient agrees to push more and does not want vacuum extraction at this point. Continue to monitor closely. Results & Data ([facility]) Vital Signs (Past 12 Hours) Vital Signs Temp Pulse Resp BP Pulse Ox 05/13/21 18:01 106 H 98 05/13/21 17:56 109 H 98 05/13/21 17:51 106 H 124/66 98 05/13/21 17:46 103 H 99 05/13/21 17:41 112 H 99 05/13/21 17:36 110 H 99 05/13/21 17:35 107 H 125/78 05/13/21 17:31 110 H 99 05/13/21 17:26 104 H 98 05/13/21 17:21 107 H 99 05/13/21 17:20 106 H 127/84 05/13/21 17:16 111 H 99 05/13/21 17:11 110 H 98 05/13/21 17:06 116 H 94 05/13/21 17:05 118 H 115/82 05/13/21 17:01 114 H 95 05/13/21 17:00 37.1 C 117 H 105/71 05/13/21 16:56 121 H 93 05/13/21 16:55 114 H 103/68 05/13/21 16:51 111 H 93 05/13/21 16:50 112 H 130/69 05/13/21 16:46 114 H 92 05/13/21 16:45 109 H 139/70 05/13/21 16:41 106 H 93 05/13/21 16:40 102 H 129/69 05/13/21 16:36 117 H 126/65 91 05/13/21 16:31 107 H 89 L 05/13/21 16:30 104 H 123/66 05/13/21 16:26 107 H 88 L 05/13/21 16:25 108 H 119/68 05/13/21 16:24 104 H 87 L 05/13/21 16:21 103 H 88 L 05/13/21 16:20 108 H 121/61 05/13/21 16:16 104 H 90 05/13/21 16:14 100 H 124/70 05/13/21 16:12 113 H 126/77 05/13/21 16:11 107 H 88 L 05/13/21 16:10 106 H 125/77 05/13/21 16:08 102 H 115/69 05/13/21 16:06 107 H 115/63 88 L 05/13/21 16:04 108 H 122/71 87 L 05/13/21 16:02 111 H 124/71 05/13/21 16:01 104 H 127/78 86 L 05/13/21 15:59 109 H 87 L 05/13/21 15:58 113 H 125/67 05/13/21 15:56 112 H 135/66 84 L 05/13/21 15:54 111 H 132/68 05/13/21 15:52 108 H 146/77 H 05/13/21 15:51 116 H 83 L 05/13/21 15:50 126 H 113/67 05/13/21 15:49 118 H 86 L 05/13/21 15:48 122 H 123/60 05/13/21 15:46 118 H 119/74 95 05/13/21 15:41 113 H 95 05/13/21 15:36 126 H 93 05/13/21 15:32 126 H 113/82 05/13/21 15:31 129 H 97 05/13/21 15:26 128 H 95 05/13/21 15:21 131 H 137/73 95 05/13/21 15:16 131 H 95 05/13/21 15:11 143 H 95 05/13/21 15:06 123 H 96 05/13/21 15:01 127 H 134/73 95 05/13/21 15:00 22 05/13/21 14:56 132 H 98 05/13/21 14:51 123 H 98 05/13/21 14:46 121 H 99 05/13/21 14:41 121 H 98 05/13/21 14:36 118 H 98 05/13/21 14:32 116 H 113/57 L 05/13/21 14:31 124 H 99 05/13/21 14:30 37.3 C 22 05/13/21 14:26 114 H 98 05/13/21 14:21 120 H 98 05/13/21 14:16 119 H 113/56 L 98 05/13/21 14:15 22 05/13/21 14:11 115 H 98 05/13/21 14:06 122 H 97 05/13/21 14:01 115 H 100/54 L 98 05/13/21 13:56 122 H 99 05/13/21 13:51 115 H 94 05/13/21 13:46 121 H 120/58 L 94 05/13/21 13:41 122 H 95 05/13/21 13:36 130 H 94 05/13/21 13:31 131 H 96 05/13/21 13:30 37.7 C H 18 05/13/21 13:26 129 H 94 05/13/21 13:21 132 H 94 05/13/21 13:16 129 H 139/77 94 05/13/21 13:11 124 H 93 05/13/21 13:06 131 H 93 05/13/21 13:02 130 H 131/62 05/13/21 13:01 128 H 93 05/13/21 12:56 129 H 94 05/13/21 12:51 126 H 94 05/13/21 12:46 132 H 136/69 94 05/13/21 12:41 122 H 93 05/13/21 12:36 131 H 93 05/13/21 12:32 136 H 127/61 05/13/21 12:31 137 H 95 05/13/21 12:30 20 05/13/21 12:26 126 H 94 05/13/21 12:21 123 H 91 05/13/21 12:16 124 H 118/58 L 93 05/13/21 12:11 130 H 91 05/13/21 12:06 128 H 92 05/13/21 12:01 126 H 111/65 92 05/13/21 12:00 37.7 C H 05/13/21 11:56 127 H 94 05/13/21 11:51 126 H 91 05/13/21 11:47 126 H 121/59 L 05/13/21 11:46 128 H 91 05/13/21 11:41 124 H 92 05/13/21 11:36 116 H 91 05/13/21 11:31 116 H 116/57 L 89 L 05/13/21 11:26 111 H 89 L 05/13/21 11:21 118 H 92 05/13/21 11:17 123 H 121/66 05/13/21 11:16 120 H 91 05/13/21 11:11 110 H 91 05/13/21 11:06 115 H 93 05/13/21 11:01 117 H 118/63 92 05/13/21 10:56 124 H 91 05/13/21 10:51 129 H 94 05/13/21 10:46 123 H 97/51 L 90 05/13/21 10:41 121 H 90 05/13/21 10:36 126 H 92 05/13/21 10:32 126 H 126/56 L 05/13/21 10:31 125 H 93 05/13/21 10:30 18 05/13/21 10:26 125 H 94 05/13/21 10:21 127 H 94 05/13/21 10:17 125 H 104/52 L 05/13/21 10:16 126 H 95 05/13/21 10:11 128 H 95 05/13/21 10:06 130 H 94 05/13/21 10:01 127 H 93 05/13/21 10:00 37.2 C 05/13/21 09:56 134 H 93 05/13/21 09:51 127 H 94 05/13/21 09:46 127 H 95/50 L 92 05/13/21 09:41 133 H 93 05/13/21 09:36 118 H 89 L 05/13/21 09:31 114 H 90/52 L 89 L 05/13/21 09:30 18 05/13/21 09:26 114 H 89 L 05/13/21 09:21 114 H 89 L 05/13/21 09:17 110 H 94/51 L 05/13/21 09:16 114 H 89 L 05/13/21 09:13 118 H 89 L 05/13/21 09:11 114 H 89 L 05/13/21 09:06 117 H 89 L 05/13/21 09:02 121 H 89 L 05/13/21 09:01 120 H 104/52 L 91 05/13/21 09:00 20 05/13/21 08:56 123 H 93 05/13/21 08:51 119 H 93 05/13/21 08:48 118 H 99/55 L 05/13/21 08:46 125 H 94 05/13/21 08:41 126 H 94 05/13/21 08:36 125 H 96 05/13/21 08:32 127 H 119/58 L 05/13/21 08:31 129 H 95 05/13/21 08:26 123 H 95 05/13/21 08:21 127 H 95 05/13/21 08:16 131 H 116/65 93 05/13/21 08:15 37.3 C 05/13/21 08:11 124 H 93 05/13/21 08:06 123 H 89 L 05/13/21 08:03 121 H 88 L 05/13/21 08:01 125 H 107/59 L 91 05/13/21 07:56 134 H 91 05/13/21 07:51 121 H 91 05/13/21 07:47 114 H 89 L 05/13/21 07:46 116 H 105/58 L 90 05/13/21 07:41 114 H 88 L 05/13/21 07:38 115 H 88 L 05/13/21 07:36 111 H 88 L 05/13/21 07:31 112 H 98/57 L 89 L 05/13/21 07:26 115 H 88 L 05/13/21 07:21 124 H 90 05/13/21 07:16 127 H 114/71 90 05/13/21 07:11 123 H 91 05/13/21 07:06 127 H 88 L 05/13/21 07:01 139 H 106/56 L 91 05/13/21 07:00 37.3 C 132 H 18 87 L 05/13/21 06:56 136 H 92 05/13/21 06:55 135 H 94 05/13/21 06:51 131 H 92 05/13/21 06:46 126 H 108/56 L 91 05/13/21 06:41 120 H 88 L 05/13/21 06:36 125 H 91 05/13/21 06:33 137 H 101/58 L 05/13/21 06:31 137 H 95 05/13/21 06:30 127 H 16 93 05/13/21 06:28 126 H 118/53 L 05/13/21 06:26 131 H 93 05/13/21 06:25 132 H 94 05/13/21 06:21 133 H 93 05/13/21 06:19 126 H 94 05/13/21 06:16 128 H 93 05/13/21 06:11 109 H 90 05/13/21 06:06 108 H 90
[2021-05-13] MEDS ORDERED: MINERAL OIL 30 ML UDC ONE (18:20)
[2021-05-13] MEDS ORDERED: METHYLERGONOVINE MALEATE 0.2 MG/ML AMP ONE (18:43)
[2021-05-13] MEDS ORDERED: MEASLES, MUMPS & RUBELLA VIRUS VIAL SQ ONE (18:51)
[2021-05-13] MEDS ORDERED: BENZOCAINE 20% AER SPR 82.5 GM CAN EXT PRN (18:51)
[2021-05-13] MEDS ORDERED: HYDROCORTISONE ACETATE 25 MG SUPP PR PRN (18:51)
[2021-05-13] MEDS ORDERED: SUPERCREAM 0.870% 15 GM JAR EXT PRN (18:51)
[2021-05-13] MEDS ORDERED: METHYLERGONOVINE MALEATE 0.2 MG/ML AMP IM ONE (18:51)
[2021-05-13] MEDS ORDERED: DIPHTHERIA/TETANUS/PERTUSSIS 0.5 ML SYR/VIAL IM ONE (18:51)
[2021-05-13] MEDS ORDERED: ACETAMINOPHEN 325 MG TAB PO PRN (18:51)
[2021-05-13] MEDS ORDERED: bisacodyL 10 MG SUPP PR PRN (18:51)
[2021-05-13] MEDS ORDERED: LACTATED RINGER'S 1,000 ML IV SCH (19:00)
[2021-05-13] MEDS: IBUPROFEN 600 MG TAB PO PRN (19:33)
[2021-05-13] MEDS: DOCUSATE SODIUM 100 MG CAP PO SCH (20:08)
--- NOTE | 2021-05-13 20:09 | Delivery Summary ---
DATE OF DELIVERY: 05/13/2021 TIME: 6:27 p.m. DETAILS OF DELIVERY: The patient was found to be fully dilated and desired to push. She pushed for about 1 hour and 50 minutes and got exhausted and painful. She requested pain relief. She was given a bolus through her epidural by Dr. Freeman and she was comfortable and rested for about an hour and then she started to push again around 5:00 p.m. and pushed another 1-1/2 hours. To aid with the delivery of the head and suspected macrosomia, small right mediolateral episiotomy was opened and the head was delivered without difficulty.and then shoulders were delivered with minimal traction. There was a terminal meconium noted. Baby was handed to the mother where mouth and nose were suctioned. Cord was clamped x2 and cut. Baby was handed off to the waiting pediatric team. Cord blood was obtained. Then, vagina and perineum were checked for lacerations. There was only a small right mediolateral episiotomy, which was opened earlier. Rest of the vagina and labia were intact. This was repaired with 2-0 Vicryl in a running fashion starting from vaginal mucosa, bringing the bulbocavernosus muscles together and skin in a subcuticular fashion. Excellent hemostasis was achieved. Placenta was found to be in the vagina, delivered spontaneously as intact and complete. Uterus was explored and found to be empty. Lower segment was cleared of all clots and debris. Fundus was firm. EBL was 300 mL. Mom and baby tolerated the procedure well. Sponge, lap, and needle count was correct x2. Baby was a viable female , Apgars 8/9, weight was 4073 gr. No complications happened and I was present during the whole procedure. Job ID: [id number] [facility]
--- NOTE | 2021-05-13 20:32 | Anesthesiology Progress Note ---
Date of Service May 13, 2021 Anesthesia Post Procedure Vital Signs Vital Signs: Temp Pulse Resp BP Pulse Ox 05/13/21 20:18 88 115/73 05/13/21 20:03 86 105/71 05/13/21 19:48 83 113/76 05/13/21 19:33 92 H 103/60 05/13/21 19:18 108/63 05/13/21 19:03 36.8 C 97 H 20 108/62 05/13/21 18:48 102 H 18 105/67 05/13/21 18:46 101 H 95 05/13/21 18:41 104 H 94 05/13/21 18:36 111 H 95 05/13/21 18:35 107 H 116/73 05/13/21 18:31 108 H 97 05/13/21 18:26 101 H 99 05/13/21 18:25 18 05/13/21 18:21 110 H 99 05/13/21 18:16 104 H 99 05/13/21 18:11 105 H 99 05/13/21 18:06 99 H 130/63 99 05/13/21 18:01 106 H 98 05/13/21 17:56 109 H 98 05/13/21 17:51 106 H 124/66 98 05/13/21 17:46 103 H 99 05/13/21 17:41 112 H 99 05/13/21 17:36 110 H 99 05/13/21 17:35 107 H 125/78 05/13/21 17:31 110 H 99 05/13/21 17:26 104 H 98 05/13/21 17:21 107 H 99 05/13/21 17:20 106 H 127/84 05/13/21 17:16 111 H 99 05/13/21 17:11 110 H 98 05/13/21 17:06 116 H 94 05/13/21 17:05 118 H 115/82 05/13/21 17:01 114 H 95 05/13/21 17:00 37.1 C 117 H 105/71 05/13/21 16:56 121 H 93 05/13/21 16:55 114 H 103/68 05/13/21 16:51 111 H 93 05/13/21 16:50 112 H 130/69 05/13/21 16:46 114 H 92 05/13/21 16:45 109 H 139/70 05/13/21 16:41 106 H 93 05/13/21 16:40 102 H 129/69 05/13/21 16:36 117 H 126/65 91 05/13/21 16:31 107 H 89 L 05/13/21 16:30 104 H 123/66 05/13/21 16:26 107 H 88 L 05/13/21 16:25 108 H 119/68 05/13/21 16:24 104 H 87 L 05/13/21 16:21 103 H 88 L 05/13/21 16:20 108 H 121/61 05/13/21 16:16 104 H 90 05/13/21 16:14 100 H 124/70 05/13/21 16:12 113 H 126/77 05/13/21 16:11 107 H 88 L 05/13/21 16:10 106 H 125/77 05/13/21 16:08 102 H 115/69 05/13/21 16:06 107 H 115/63 88 L 05/13/21 16:04 108 H 122/71 87 L 05/13/21 16:02 111 H 124/71 05/13/21 16:01 104 H 127/78 86 L 05/13/21 15:59 109 H 87 L 05/13/21 15:58 113 H 125/67 05/13/21 15:56 112 H 135/66 84 L 05/13/21 15:54 111 H 132/68 05/13/21 15:52 108 H 146/77 H 05/13/21 15:51 116 H 83 L 05/13/21 15:50 126 H 113/67 05/13/21 15:49 118 H 86 L 05/13/21 15:48 122 H 123/60 05/13/21 15:46 118 H 119/74 95 05/13/21 15:41 113 H 95 05/13/21 15:36 126 H 93 05/13/21 15:32 126 H 113/82 05/13/21 15:31 129 H 97 05/13/21 15:26 128 H 95 05/13/21 15:21 131 H 137/73 95 05/13/21 15:16 131 H 95 05/13/21 15:11 143 H 95 05/13/21 15:06 123 H 96 05/13/21 15:01 127 H 134/73 95 05/13/21 15:00 22 05/13/21 14:56 132 H 98 05/13/21 14:51 123 H 98 05/13/21 14:46 121 H 99 05/13/21 14:41 121 H 98 05/13/21 14:36 118 H 98 05/13/21 14:32 116 H 113/57 L 05/13/21 14:31 124 H 99 05/13/21 14:30 37.3 C 22 05/13/21 14:26 114 H 98 05/13/21 14:21 120 H 98 05/13/21 14:16 119 H 113/56 L 98 05/13/21 14:15 22 05/13/21 14:11 115 H 98 05/13/21 14:06 122 H 97 05/13/21 14:01 115 H 100/54 L 98 05/13/21 13:56 122 H 99 05/13/21 13:51 115 H 94 05/13/21 13:46 121 H 120/58 L 94 05/13/21 13:41 122 H 95 05/13/21 13:36 130 H 94 05/13/21 13:31 131 H 96 05/13/21 13:30 37.7 C H 18 05/13/21 13:26 129 H 94 05/13/21 13:21 132 H 94 05/13/21 13:16 129 H 139/77 94 05/13/21 13:11 124 H 93 05/13/21 13:06 131 H 93 05/13/21 13:02 130 H 131/62 05/13/21 13:01 128 H 93 05/13/21 12:56 129 H 94 05/13/21 12:51 126 H 94 05/13/21 12:46 132 H 136/69 94 05/13/21 12:41 122 H 93 05/13/21 12:36 131 H 93 05/13/21 12:32 136 H 127/61 05/13/21 12:31 137 H 95 05/13/21 12:30 20 05/13/21 12:26 126 H 94 05/13/21 12:21 123 H 91 05/13/21 12:16 124 H 118/58 L 93 05/13/21 12:11 130 H 91 05/13/21 12:06 128 H 92 05/13/21 12:01 126 H 111/65 92 05/13/21 12:00 37.7 C H 05/13/21 11:56 127 H 94 05/13/21 11:51 126 H 91 05/13/21 11:47 126 H 121/59 L 05/13/21 11:46 128 H 91 05/13/21 11:41 124 H 92 05/13/21 11:36 116 H 91 05/13/21 11:31 116 H 116/57 L 89 L 05/13/21 11:26 111 H 89 L 05/13/21 11:21 118 H 92 05/13/21 11:17 123 H 121/66 05/13/21 11:16 120 H 91 05/13/21 11:11 110 H 91 05/13/21 11:06 115 H 93 05/13/21 11:01 117 H 118/63 92 05/13/21 10:56 124 H 91 05/13/21 10:51 129 H 94 05/13/21 10:46 123 H 97/51 L 90 05/13/21 10:41 121 H 90 05/13/21 10:36 126 H 92 05/13/21 10:32 126 H 126/56 L 05/13/21 10:31 125 H 93 05/13/21 10:30 18 05/13/21 10:26 125 H 94 05/13/21 10:21 127 H 94 05/13/21 10:17 125 H 104/52 L 05/13/21 10:16 126 H 95 05/13/21 10:11 128 H 95 05/13/21 10:06 130 H 94 05/13/21 10:01 127 H 93 05/13/21 10:00 37.2 C 05/13/21 09:56 134 H 93 05/13/21 09:51 127 H 94 05/13/21 09:46 127 H 95/50 L 92 05/13/21 09:41 133 H 93 05/13/21 09:36 118 H 89 L 05/13/21 09:31 114 H 90/52 L 89 L 05/13/21 09:30 18 05/13/21 09:26 114 H 89 L 05/13/21 09:21 114 H 89 L 05/13/21 09:17 110 H 94/51 L 05/13/21 09:16 114 H 89 L 05/13/21 09:13 118 H 89 L 05/13/21 09:11 114 H 89 L 05/13/21 09:06 117 H 89 L 05/13/21 09:02 121 H 89 L 05/13/21 09:01 120 H 104/52 L 91 05/13/21 09:00 20 05/13/21 08:56 123 H 93 05/13/21 08:51 119 H 93 05/13/21 08:48 118 H 99/55 L 05/13/21 08:46 125 H 94 05/13/21 08:41 126 H 94 05/13/21 08:36 125 H 96 05/13/21 08:32 127 H 119/58 L 05/13/21 08:31 129 H 95 05/13/21 08:26 123 H 95 05/13/21 08:21 127 H 95 05/13/21 08:16 131 H 116/65 93 05/13/21 08:15 37.3 C 05/13/21 08:11 124 H 93 05/13/21 08:06 123 H 89 L 05/13/21 08:03 121 H 88 L 05/13/21 08:01 125 H 107/59 L 91 05/13/21 07:56 134 H 91 05/13/21 07:51 121 H 91 05/13/21 07:47 114 H 89 L 05/13/21 07:46 116 H 105/58 L 90 05/13/21 07:41 114 H 88 L 05/13/21 07:38 115 H 88 L 05/13/21 07:36 111 H 88 L 05/13/21 07:31 112 H 98/57 L 89 L 05/13/21 07:26 115 H 88 L 05/13/21 07:21 124 H 90 05/13/21 07:16 127 H 114/71 90 05/13/21 07:11 123 H 91 05/13/21 07:06 127 H 88 L 05/13/21 07:01 139 H 106/56 L 91 05/13/21 07:00 37.3 C 132 H 18 87 L 05/13/21 06:56 136 H 92 05/13/21 06:55 135 H 94 05/13/21 06:51 131 H 92 05/13/21 06:46 126 H 108/56 L 91 05/13/21 06:41 120 H 88 L 05/13/21 06:36 125 H 91 05/13/21 06:33 137 H 101/58 L 05/13/21 06:31 137 H 95 05/13/21 06:30 127 H 16 93 05/13/21 06:28 126 H 118/53 L 05/13/21 06:26 131 H 93 05/13/21 06:25 132 H 94 05/13/21 06:21 133 H 93 05/13/21 06:19 126 H 94 05/13/21 06:16 128 H 93 05/13/21 06:11 109 H 90 05/13/21 06:06 108 H 90 05/13/21 06:01 110 H 102/54 L 91 05/13/21 05:56 112 H 92 05/13/21 05:53 129 H 94 05/13/21 05:51 126 H 97 05/13/21 05:47 110 H 111/61 05/13/21 05:46 109 H 91 05/13/21 05:41 110 H 91 05/13/21 05:36 111 H 92 05/13/21 05:32 113 H 112/58 L 05/13/21 05:31 113 H 91 05/13/21 05:30 20 05/13/21 05:26 119 H 89 L 05/13/21 05:21 127 H 124/59 L 93 05/13/21 05:20 37.2 C 05/13/21 05:17 133 H 123/68 05/13/21 05:16 128 H 90 05/13/21 05:15 134 H 94 05/13/21 05:11 137 H 97 05/13/21 05:10 134 H 93 05/13/21 05:06 131 H 93 05/13/21 05:02 148 H 154/88 H 05/13/21 05:01 149 H 95 05/13/21 04:56 132 H 96 05/13/21 04:55 135 H 93 05/13/21 04:51 134 H 97 05/13/21 04:48 140 H 145/78 H 94 05/13/21 04:46 149 H 91 05/13/21 04:41 131 H 91 05/13/21 04:36 131 H 94 05/13/21 04:35 141 H 94 05/13/21 04:31 37.1 C 136 H 94 05/13/21 04:30 136 H 24 145/79 H 92 05/13/21 04:26 133 H 93 05/13/21 04:25 134 H 133/81 05/13/21 04:21 135 H 93 05/13/21 04:20 131 H 137/62 05/13/21 04:16 134 H 97 05/13/21 04:14 134 H 137/76 05/13/21 04:11 141 H 96 05/13/21 04:10 130 H 140/65 05/13/21 04:09 130 H 93 05/13/21 04:06 129 H 97 05/13/21 04:05 125 H 136/58 L 05/13/21 04:04 130 H 94 05/13/21 04:01 132 H 136/72 94 05/13/21 04:00 22 05/13/21 03:58 131 H 93 05/13/21 03:56 132 H 96 05/13/21 03:54 129 H 138/77 05/13/21 03:52 126 H 94 05/13/21 03:51 127 H 95 05/13/21 03:50 129 H 133/67 05/13/21 03:46 128 H 93 05/13/21 03:44 127 H 124/68 05/13/21 03:41 137 H 98 05/13/21 03:38 136 H 122/62 93 05/13/21 03:36 142 H 120/65 97 05/13/21 03:34 134 H 120/62 05/13/21 03:32 137 H 121/68 05/13/21 03:31 135 H 97 05/13/21 03:30 137 H 111/64 05/13/21 01:45 36.9 C 05/12/21 22:59 117 H 93 05/12/21 22:54 109 H 88 L 05/12/21 22:49 120 H 91 05/12/21 22:44 122 H 94 05/12/21 22:39 113 H 115/75 94 Pain Intensity Bilateral Abdomen: Pain Intensity: 4 Transfer of Care Handoff Completed per policy Notes Mental Status: alert / awake / arousable and participated in evaluation Patient Amnestic to Procedure: Yes Nausea / Vomiting: adequately controlled Pain: adequately controlled Airway Patency, RR, SpO2: stable & adequate BP & HR: stable & adequate Hydration State: stable & adequate Anesthetic Complications: no major complications apparent and Pt Satisfied with anesthetic care
[2021-05-14] MEDS: IBUPROFEN 600 MG TAB PO PRN ×4 (00:53→20:47)
[2021-05-14] MEDS: ceFAZolin 2000MG 2,000 MG/15 ML SYR IV SCH ×2 (03:07→10:54)
[2021-05-14] MEDS: CLINDAMYCIN 900 MG in DEXTROSE 5% 50 ML IV SCH ×2 (03:11→10:59)
[2021-05-14 06:27] LABS: Hematocrit (blood only) 30.6 % (37-47); Hemoglobin 10.5 g/dL (12.0-16.0); Mean Corpuscular Hemoglobin 32.1 pg (25-34); Mean Corpuscular Hgb Conc 34.3 g/dL (32-36); Mean Corpuscular Volume 93.6 fL (80-100); Platelet Count 299 K/uL (130-400); RDW Coefficient of Variation 14.1 % (11.5-14.5); RDW Standard Deviation 48.5 fL (36.4-46.3); Red Blood Count 3.27 M/uL (4.2-5.4); White Blood Count 17.02 K/uL (4.8-10.8)
[2021-05-14] MEDS: DOCUSATE SODIUM 100 MG CAP PO SCH ×2 (07:37→20:47)
[2021-05-14] MEDS: FERROUS SULFATE 325 MG TAB PO SCH (07:37)
[2021-05-14] MEDS: PRENATAL VITAMIN 1 TAB PO SCH (07:38)
[2021-05-14] MEDS: ONDANSETRON INJ 2 MG/ML 2 ML VIAL IV PRN (09:04)
--- NOTE | 2021-05-14 11:34 | Obstetrical Progress Note ---
Date of Service May 14, 2021 Assessment & Plan Admission and Anticipated Discharge Date Admission Date: May 12, 2021 Subjective Patient is seen and examined. She feels well, no complaints. Ambulating without dizziness Voiding without difficulty Tolerating regular diet with out N&V Bleeding is minimal No fever/ chills/ CP/ SOB/ N&V/ Leg pain Bottle feeding without problems Vital Signs Temp Pulse Resp BP Pulse Ox 05/14/21 07:30 36.8 C 98 H 16 135/74 97 05/14/21 03:45 36.6 C 93 H 18 107/74 97 Lab Results 05/12/21 05/12/21 05/12/21 Range/Units 08:55 08:55 Unknown WBC 13.43 H (4.8-10.8) K/uL RBC 3.83 L (4.2-5.4) M/uL Hgb 12.1 (12.0-16.0) g/dL Hct 35.9 L (37-47) % MCV 93.7 (80-100) fL MCH 31.6 (25-34) pg MCHC 33.7 (32-36) g/dL RDW Std Deviation 48.4 H (36.4-46.3) fL RDW Coeff of Maria Elena 14.1 (11.5-14.5) % Plt Count 367 (130-400) K/uL MPV 9.1 (7.4-10.4) fL SARS-CoV-2, RNA, NAAT NEGATIVE (NEGATIVE) Blood Type B Positive Antibody Screen NEGATIVE Crossmatch See Detail 05/14/21 Range/Units 06:11 WBC 17.02 H (4.8-10.8) K/uL RBC 3.27 L (4.2-5.4) M/uL Hgb 10.5 L (12.0-16.0) g/dL Hct 30.6 L (37-47) % MCV 93.6 (80-100) fL MCH 32.1 (25-34) pg MCHC 34.3 (32-36) g/dL RDW Std Deviation 48.5 H (36.4-46.3) fL RDW Coeff of Maria Elena 14.1 (11.5-14.5) % Plt Count 299 (130-400) K/uL MPV 9.0 (7.4-10.4) fL SARS-CoV-2, RNA, NAAT (NEGATIVE) Blood Type Antibody Screen Crossmatch PE: General: Alert, orientedx3, NAD Abd: soft, NT, fundus firm, below Umbilicus Perineum intact, Lochia rubra minimal Ext; NT, no edema AP: 21 yo s/p , ppd# 1 VSS Afebrile doing well Continue routine care All questions were answered D/C home tomorrow Results & Data ([facility]) Vital Signs (Past 12 Hours) Vital Signs Temp Pulse Resp BP Pulse Ox 05/14/21 07:30 36.8 C 98 H 16 135/74 97 05/14/21 03:45 36.6 C 93 H 18 107/74 97
[2021-05-14] MEDS: oxyCODONE/ACETAMINOPHEN 5mg/325mg TAB PO PRN ×2 (13:58→20:48)
[2021-05-14] MEDS ORDERED: bisacodyL 5 MG TABEC PO SCH (20:00)
[2021-05-15 06:07] LABS: Hematocrit (blood only) 28.2 % (37-47); Hemoglobin 9.4 g/dL (12.0-16.0); Mean Corpuscular Hemoglobin 31.9 pg (25-34); Mean Corpuscular Hgb Conc 33.3 g/dL (32-36); Mean Corpuscular Volume 95.6 fL (80-100); Mean Platelet Volume 9.1 fL (7.4-10.4); Platelet Count 340 K/uL (130-400); RDW Coefficient of Variation 14.5 % (11.5-14.5); RDW Standard Deviation 51.1 fL (36.4-46.3); Red Blood Count 2.95 M/uL (4.2-5.4); White Blood Count 12.83 K/uL (4.8-10.8)
[2021-05-15 06:28] LABS: Basophils # (auto) 0.03 K/uL (0-0.2); Basophils % (auto) 0.2 %; Eosinophils # (auto) 0.22 K/uL (0-0.5); Eosinophils % (auto) 1.7 %; Immature Granulocytes # (auto) 0.05 K/uL (0.00-0.02); Immature Granulocytes % (auto) 0.4 %; Lymphocytes # (auto) 2.87 K/uL (1.2-3.4); Lymphocytes % (auto) 22.4 %; Monocytes # (auto) 0.95 K/uL (0.11-0.59); Monocytes % (auto) 7.4 %; Neutrophils # (auto) 8.71 K/uL (1.4-6.5); Neutrophils % (auto) 67.9 %
[2021-05-15] MEDS: PRENATAL VITAMIN 1 TAB PO SCH (07:55)
[2021-05-15] MEDS: FERROUS SULFATE 325 MG TAB PO SCH (07:55)
[2021-05-15] MEDS: DOCUSATE SODIUM 100 MG CAP PO SCH (07:55)
--- NOTE | 2021-05-15 10:57 | Obstetrical Progress Note ---
Date of Service May 15, 2021 Subjective Ambulation: ambulating normally Voiding: no voiding problems Passing Gas:: Yes Diet Tolerance:: regular diet Lochia:: Small Feeding Type:: breast feeding Current Pain Level(1-10): 0 doing well plans to go home Physical Exam Constitutional WD/WN, vitals as above comfortable abdomen soft and non-tender fundus firm no edema, neg Curtis's for d/c Results & Data ([facility]) Vital Signs (Past 12 Hours) Vital Signs Temp Pulse Resp BP Pulse Ox 05/15/21 10:18 36.7 C 92 H 18 96/67 L 98 05/15/21 07:37 36.7 C 92 H 18 96/67 L 98 05/14/21 23:20 36.4 C L 87 18 96/67 L 99 Laboratory Results 05/12/21 05/12/21 05/12/21 08:55 08:55 Unknown WBC 13.43 H RBC 3.83 L Hgb 12.1 Hct 35.9 L MCV 93.7 MCH 31.6 MCHC 33.7 RDW Std Deviation 48.4 H RDW Coeff of Maria Elena 14.1 Plt Count 367 MPV 9.1 Immature Gran % (Auto) Neut % (Auto) Lymph % (Auto) [place] % (Auto) Eos % (Auto) Baso % (Auto) Neut # (Auto) Lymph # (Auto) [place] # (Auto) Eos # (Auto) Baso # (Auto) Immature Gran # (Auto) SARS-CoV-2, RNA, NAAT NEGATIVE Blood Type B Positive Antibody Screen NEGATIVE Crossmatch See Detail 05/14/21 05/15/21 06:11 05:41 WBC 17.02 H 12.83 H RBC 3.27 L 2.95 L Hgb 10.5 L 9.4 L Hct 30.6 L 28.2 L MCV 93.6 95.6 MCH 32.1 31.9 MCHC 34.3 33.3 RDW Std Deviation 48.5 H 51.1 H RDW Coeff of Maria Elena 14.1 14.5 Plt Count 299 340 MPV 9.0 9.1 Immature Gran % (Auto) 0.4 Neut % (Auto) 67.9 Lymph % (Auto) 22.4 [place] % (Auto) 7.4 Eos % (Auto) 1.7 Baso % (Auto) 0.2 Neut # (Auto) 8.71 H Lymph # (Auto) 2.87 [place] # (Auto) 0.95 H Eos # (Auto) 0.22 Baso # (Auto) 0.03 Immature Gran # (Auto) 0.05 H SARS-CoV-2, RNA, NAAT Blood Type Antibody Screen Crossmatch
== END 2021-05-15 11:50 | disposition home or self-care (01) | DRG 807 ==
LOC: 4S1 07:43 → 4S2 05-13 21:17